=== PATIENT | female | born 1995 | race Caucasian/White ===

== ENCOUNTER 2016-12-05 23:07 | Emergency (ER) | payer SELFPAY ==
[2016-12-05 23:08] VITALS: BMI 20.9
[2016-12-05] MEDS ORDERED: Sodium Chloride 0.9% 1,000 ML IV ONE (23:51)
--- NOTE | 2016-12-05 23:51 | C.PDOC ---
History Of Present Illness 21 y/o female presents to the ED for evaluation of epigastric abdominal pain and diarrhea which began around 2 days ago. Patient also reports nausea. She notes LMP was 2 days ago. Patient denies fever or prior surgical history. EPIG PAIN, DIARRHEA X 2 DAYS. +NAUSEA NO FEVER. LMP 2 DAYS. PSH NEG EXAM MILD DIST NONTOXIC HEENT MMM ANICTERIC ABD MILD EPIG TEND SOFT NO R/G REMAINDER NEG Time Seen by Provider: 12/05/16 23:46 Chief Complaint (Nursing): Abdominal Pain History Per: Patient History/Exam Limitations: no limitations Onset/Duration Of Symptoms: Days (2) Current Symptoms Are (Timing): Still Present Location Of Pain/Discomfort: Epigastric Radiation Of Pain To:: None Quality Of Discomfort: "Pain" Associated Symptoms: Nausea, Diarrhea. denies: Fever Last Bowel Movement: Today Additional History Per: Patient Abnormal Vaginal Bleeding: No Past Medical History Reviewed: Historical Data, Nursing Documentation, Vital Signs Vital Signs: Last Vital Signs Temp 98.6 F 12/05/16 23:33 Pulse 80 12/05/16 23:33 Resp 18 12/05/16 23:33 BP 127/92 H 12/05/16 23:33 Pulse Ox 97 12/05/16 23:59 - Medical History PMH: No Chronic Diseases Surgical History: No Surg Hx - [facility] Procedures ARTIF RUPT MEMBRANES NEC (11/24/12) INJECT RH IMMUNE GLOBUL (11/24/12) MANUAL ASSIST DELIV NEC (11/24/12) MEDICAL INDUCTION LABOR (11/24/12) REPAIR OB LACERATION NEC (11/24/12) Family History: States: Unknown Family Hx - Social History Hx Alcohol Use: No Hx Substance Use: No - Immunization History Hx Tetanus Toxoid Vaccination: No Hx Influenza Vaccination: No Hx Pneumococcal Vaccination: No Review Of Systems Constitutional: Negative for: Fever Gastrointestinal: Positive for: Nausea, Abdominal Pain (epigastric ), Diarrhea Physical Exam - Physical Exam Appears: Non-toxic, Other (mild distress ) Skin: Normal Color, Warm, Dry, Other (anticteric ) Head: Atraumatic, Normacephalic Eye(s): bilateral: Normal Inspection Ear(s): Bilateral: Normal Nose: Normal, No Discharge Oral Mucosa: Moist Throat: Normal, No Erythema, No Exudate Neck: Supple Chest: Symmetrical Cardiovascular: Rhythm Regular Respiratory: Normal Breath Sounds Gastrointestinal/Abdominal: Soft, Tenderness (mild, epigastric ), No Guarding, No Rebound Extremity: Normal ROM, Capillary Refill (less than 2 seconds ) Neurological/Psych: Oriented x3, Normal Speech, Normal Cognition Gait: Steady ED Course And Treatment - Laboratory Results Result Diagrams: 12/06/16 00:12 12/06/16 00:12 O2 Sat by Pulse Oximetry: 97 (on RA) Pulse Ox Interpretation: Normal Progress Note: labs ordered and reviewed. Patient received Bentyl PO, Lomotil PO , Zofran IVP, and IV Fluids. Reevaluation Time: 00:53 Reassessment Condition: Improved (PAIN RESOLVED NO RECUR N/D.) Disposition Counseled Patient/Family Regarding: Studies Performed, Diagnosis, Need For Followup, Rx Given - Disposition Referrals: Clinic,Med Surg [Primary Care Provider] - Disposition: HOME/ ROUTINE Disposition Time: 00:53 Condition: IMPROVED Prescriptions: Atropine/Diphenoxylate [Lonox 0.025 MG-2.5 MG] 1 tab PO TID PRN #20 tab PRN Reason: Diarrhea Ondansetron [Zofran Odt] 4 mg PO TID PRN #9 odt PRN Reason: Nausea/Vomiting Instructions: Gastroenteritis (ED) Forms: [facility] (Japanese) Print Language: MALAY - Clinical Impression Clinical Impression: Diarrhea, Nausea - Scribe Statement The provider has reviewed the documentation as recorded by the Scribe (Sania Moon) Provider Attestation: All medical record entries made by the Scribe were at my direction and personally dictated by me. I have reviewed the chart and agree that the record accurately reflects my personal performance of the history, physical exam, medical decision making, and the department course for this patient. I have also personally directed, reviewed, and agree with the discharge instructions and disposition.
[2016-12-05] MEDS ORDERED: Atropine-Diphenoxylate 0.025-2.5 mg Tab PO STA (23:52)
[2016-12-05] MEDS ORDERED: Sodium Chloride 0.9% 1,000 ML ONE (23:57)
[2016-12-05] MEDS ORDERED: Atropine-Diphenoxylate 0.025-2.5 mg Tab ONE (23:57)
[2016-12-06 00:17] LABS: BASO # 0.1 K/uL (0.0-0.2); BASO % 0.9 % (0.0-2.0); EOS # 1.4 K/uL (0.0-0.7); EOS % 12.8 % (0.0-4.0); HEMATOCRIT 38.2 % (34.0-47.0); LYMPH # 2.2 K/uL (1.0-4.3); LYMPH % 20.4 % (20.0-40.0); MEAN CELL VOLUME 80.3 fL (81.0-99.0); MEAN CORPUSCULAR HEMOGLOBIN 26.6 pg (27.0-31.0); MEAN CORPUSCULAR HGB CONC 33.1 g/dL (33.0-37.0); MEAN PLATELET VOLUME 8.5 fL (7.2-11.7); MONO # 0.5 K/uL (0.0-0.8); NRBC % 0.1 % (0.0-2.0); RED CELL DISTRIBUTION WIDTH 14.6 % (11.5-14.5); WHITE BLOOD COUNT 10.8 K/uL (4.8-10.8)
[2016-12-06 00:23] LABS: RBC URINE 35 /hpf (0-3); URINE BILIRUBIN NEGATIVE (NEGATIVE); URINE BLOOD 3+ (NEGATIVE); URINE COLOR Yellow (YELLOW); URINE GLUCOSE (UA) NORMAL (Normal); URINE KETONE 1+ mg/dL (NEGATIVE); URINE LEUKOCYTE ESTERASE NEG Leu/uL (Negative); URINE PROTEIN NEGATIVE (NEGATIVE); URINE UROBILINOGEN NORMAL mg/dL (0.2-1.0); WBC URINE 5 /hpf (0-5)
[2016-12-06 00:30] LABS: BLOOD UREA NITROGEN 9 mg/dL (7-17); CALCIUM 9.2 mg/dl (8.6-10.4); CARBON DIOXIDE 22 mmol/L (22-30); CHLORIDE 104 mmol/L (98-107); GFR AFRICAN-AMERICAN > 60; GLUCOSE,RANDOM 85 mg/dL (65-105); POTASSIUM 3.8 mmol/L (3.6-5.2); SODIUM 137 mmol/L (132-148)
[2016-12-06 01:03] VITALS: BP 114/76; PULSE 63; RESP 20; TEMP 97.9; O2SAT 100
== END 2016-12-06 01:03 | disposition home or self-care (01) ==
LOC: SUPCPDRO 23:07 → C.ER 23:07
DX: R19.7 Diarrhea, unspecified (principal); R11.0 Nausea
CPT/HCPCS: 80048; 81001; 85025; 96361; 96374; 99285; J2405; J7040